=== PATIENT | male | born 1950 | race Caucasian/White ===

== ENCOUNTER 2018-01-23 17:32 | Emergency (ER) | payer BC ==
[~2018-01-23] VITALS: Ht 182.9 cm; Wt 91.7 kg
[2018-01-23 17:43] VITALS: TEMP 36.9; Ht 182.9 cm; Wt 91.7 kg
[2018-01-23] MEDS ORDERED: PROPARACAINE HCL 0.5% OP SOLN 15 ML BTL OP STA (18:17)
[2018-01-23] MEDS ORDERED: DOXYCYCLINE HYCLATE 100 MG CAP PO STA (19:27)
[2018-01-23] MEDS ORDERED: MOXIFLOXACIN HCL 0.5% OP SOLN 3 ML BTL OPB STA (19:27)
[2018-01-23 19:40] VITALS: BP 139/78; PULSE 80; O2SAT 97
--- NOTE | 2018-01-23 19:56 | EMERGENCY ROOM VISIT NOTE ---
ED Visit Note First contact with patient: 17:51 This Patient was discussed with the physician economist research assistant, Deepthi Gibson PA-C. The pertinent historical and physical exam findings were confirmed. I agree with the studies ordered and with the interpretations of these studies. I agree with the disposition and care plan.
[2018-01-23] MEDS ORDERED: DOXY100C PO (19:58)
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
== END 2018-01-23 20:07 | disposition home or self-care (01) ==
LOC: C.EDB 17:32 → C.EDD 20:07
DX: T26.61XA Corrosion of cornea and conjunctival sac, right eye, initial encounter (principal); T26.62XA Corrosion of cornea and conjunctival sac, left eye, initial encounter; Z77.098 Contact with and (suspected) exposure to other hazardous, chiefly nonmedicinal, chemicals; E11.9 Type 2 diabetes mellitus without complications; J30.9 Allergic rhinitis, unspecified; Z79.84 Long term (current) use of oral hypoglycemic drugs; Z79.82 Long term (current) use of aspirin; Z79.899 Other long term (current) drug therapy